=== PATIENT | male | born 1985 | race Caucasian/White ===

== ENCOUNTER 2022-02-26 08:26 | Emergency (ER) | payer OTHER, BC ==
[~2022-02-26] VITALS: Ht 188 cm; Wt 109.1 kg
[2022-02-26 08:43] VITALS: BP 138/98
== END 2022-02-26 10:56 | disposition home or self-care (01) ==
LOC: ER 08:26
DX: M54.59 Other low back pain (principal); G89.29 Other chronic pain; K21.9 Gastro-esophageal reflux disease without esophagitis; Z88.0 Allergy status to penicillin
CPT/HCPCS: 69210; 99284